=== PATIENT | female | born 1975 | race Caucasian/White ===

== ENCOUNTER 2018-06-07 12:26 | Emergency (ER) | payer OTHER, MEDICAID ==
[2018-06-07] MEDS: KETOROLAC 30 MG INJ IM (13:29)
== END 2018-06-07 14:32 | disposition home or self-care (01) ==
LOC: FTE 12:26
DX: M75.31 Calcific tendinitis of right shoulder (principal)
CPT/HCPCS: 73030; 73030-RT; 81025; 96372; 99284-25

== ENCOUNTER 2018-07-06 11:40 | Emergency (ER) | payer OTHER ==
[2018-07-06] MEDS: FAMOTIDINE 20 MG TAB PO (12:33)
== END 2018-07-06 13:04 | disposition home or self-care (01) ==
LOC: FTE 13:04
DX: T78.3XXA Angioneurotic edema, initial encounter (principal)
CPT/HCPCS: 99283; Z7502